=== PATIENT | male | born 1985 | race Hispanic/Latino ===

== ENCOUNTER 2018-09-01 08:11 | Emergency (ER) | payer MEDICARE ==
[2018-09-01] MEDS ORDERED: NEOMYCIN/POLYMYXIN/HC OTIC SUSP 10ML BOTTLE ONE (09:17)
== END 2018-09-01 09:28 | disposition home or self-care (01) ==
LOC: EDH 08:11
DX: H60.311 Diffuse otitis externa, right ear (principal)